=== PATIENT | female | born 1995 | race Caucasian/White ===

== ENCOUNTER 2020-05-19 13:47 | Outpatient (REF) | payer MEDICAID, SELFPAY | END 2020-05-19 13:48 | disposition home or self-care (01) | LOC: HO.LAB 13:47 | PROVIDERS: Visit Provider Internal Medicine | DX: Z20.822 Contact with and (suspected) exposure to COVID-19 (principal) | CPT/HCPCS: 36415; C9803; U0003; U0005 ==

== ENCOUNTER 2020-07-29 09:23 | Outpatient (REF) | payer MEDICAID, SELFPAY ==
[2020-07-29 09:55] LABS: COVID-19 Test Negative (Negative)
== END 2020-07-29 09:24 | disposition home or self-care (01) ==
LOC: HO.LAB 09:23
PROVIDERS: Visit Provider Internal Medicine
DX: Z20.822 Contact with and (suspected) exposure to COVID-19 (principal)
CPT/HCPCS: 36415; 87635; C9803

== ENCOUNTER 2020-11-16 11:40 | Outpatient (REF) | payer MEDICAID, SELFPAY | END 2020-11-16 11:41 | disposition home or self-care (01) | LOC: HO.LAB 11:40 | PROVIDERS: PCP Internal Medicine; Visit Provider Internal Medicine | DX: Z20.822 Contact with and (suspected) exposure to COVID-19 (principal) | CPT/HCPCS: C9803; U0003; U0005 ==

== ENCOUNTER 2022-04-07 12:37 | Emergency (ER) | payer MEDICAID, SELFPAY ==
[2022-04-07 12:48] VITALS: BP 157/97; PULSE 80; RESP 18; TEMP 36.1; O2SAT 98; BMI 34.2
--- NOTE | 2022-04-07 12:49 | ED_ITS ---
HPI - General Adult General Chief complaint: General Medical Stated complaint: facial swelling Time Seen by Provider: 04/07/22 12:49 Source: patient Mode of arrival: ambulatory Limitations: no limitations History of Present Illness HPI narrative: Patient is a 27 year old assigned female at with no reported medical history presenting to the emergency department today with right sided facial swelling. Patient states that she was on break when the right side of her face began to swell. Patient states that it has already gone down and gotten better but her boss told her she had to be seen here. Patient denies any dizziness, lightheadedness, abdominal pain, nausea, vomiting, fever, chills, blurry vision, double vision, loss of vision, chest pain, difficulty breathing, shortness of breath, back pain, night sweats, pain with urination, increased urinary frequency, increased urinary urgency, blood in her urine or stool, syncope or a near syncopal episode, recent trauma or falls, bowel incontinence, bladder incontinence, bowel retention, bladder retention, or any other complaints at this time. Patient denies any exposure to anything new. Patient denies any history of allergies to anything. Onset (ago): minute(s) Location: face and right Radiation: non-radiation Severity: mild Severity scale (1-10): 2 Relieving factors: none Exacerbating factors: none Associated symptoms: denies other symptoms Treatments prior to arrival: none Related Data Previous Rx's Medication Instructions Recorded prednisone 20 mg tablet 20 mg PO DAILY 7 days #7 tabs 04/07/22 Allergies Allergy/AdvReac Type Severity Reaction Status Date / Time No Known Allergies Allergy Unverified 11/27/19 17:20 [No Known Allergies*] Review of Systems Constitutional: Constitutional: Reports no additional constitutional complaints, Denies chills, Denies fever(s) and Denies night sweats Comments: right sided facial swelling Eyes: Eyes: Reports no additional eye complaints, Denies blurry vision, Denies change in vision, Denies diplopia, Denies eye discharge, Denies loss of vision and Denies eye pain ENT: Denies dizziness Cardiovascular: Cardiovascular: Reports no additional cardiovascular complaints, Denies chest pain, Denies lightheadedness, Denies Loss of Consciousness and Denies dyspnea Respiratory: Respiratory: Reports no additional respiratory complaints and Denies dyspnea Gastrointestinal: Gastrointestinal: Reports no additional gastrointestinal complaints, Denies abdominal pain, Denies melena, Denies hematochezia, Denies change in bowel habits and Denies change in stool character Genitourinary: Genitourinary: Denies hematuria, Denies urinary frequency, Denies dysuria, Denies urinary incontinence, Denies urinary hesitancy and Denies urinary urgency Musculoskeletal: Musculoskeletal: Reports no additional musculoskeletal complaints, Denies numbness and Denies tingling Neurologic: Denies dizziness, Denies loss of vision, Denies numbness and Denies tingling Psychiatric: Psychiatric: Reports no additional psychiatric complaints Endocrine: Endocrine: Reports no additional endocrine complaints Hematologic/Lymphatic: Hematologic/Lymphatic: Reports no additional hematologic/lymphatic complaints Allergic/Immunologic: Allergic/Immunologic: Reports no additional allergic/immunologic complaints [facility] Past Medical History Attestation statement: The following information was validated with the patient. Source: old records reviewed and nursing notes reviewed Social History Social History Advance Directives: No Advance Directives Information Provided: No Physical Exam ED Vital Signs: Vital Signs - 24 hr 04/07/22 12:48 Temperature 97.0 F Pulse Rate 80 Respiratory Rate 18 Blood Pressure 157/97 H Pulse Oximetry 98 Oxygen Delivery Method Room Air BMI result Body Mass Index 34.2 Const General: cooperative, no acute distress, alert and awake Nutritional Appearance: well nourished Orientation/consciousness: patient oriented x3 Limitations: no limitations HENMT Other: minimal right sided facial cheek swelling Head: Yes atraumatic Ears: hearing grossly normal bilaterally and external ears normal General nose exam: Normal external nose present, no nasal discharge noted and no epistaxis Face and sinus: Yes normal facial exam, No abrasion and No laceration Mouth: Normal oral and palatal mucosa present, no drooling and no muffled voice Eyes General: appearance normal, both eyes and all related structures Periorbital: periorbital findings normal Eyelids: Yes eyelids normal Conjunctivae: conjunctivae normal Pupils: Equal, round and reactive pupils present EOM: EOMs intact bilaterally Neck Neck: Yes normal visual inspection, Yes full ROM and Yes no lymphadenopathy Chest Chest palpation & inspection: normal inspection of the chest Resp Effort & Inspection: normal respiratory effort and able to speak in complete sentences Auscultation: clear to auscultation bilaterally Cardio Rate: regular rate Rhythm: regular rhythm GI Inspection: Yes normal to inspection Palpation (GI): Soft to palpation, not firm, nontender, no guarding and not r igid Neuro General: patient oriented x3 and moves all extremities Cranial nerves: Yes Equal, round and reactive pupils present Cognition (Neuro): normal cognition Motor exam (neuro): 5/5 motor strength present throughout Sensory Exam: Normal double simultaneous stimulation for sensation Coordination: [id number] test normal Extrem General: Yes normal to inspection, Yes full ROM and Yes capillary refill normal Psych Appearance: grossly normal Mental Status: mental status grossly normal Affect: normal affect Attitude: cooperative Thought process: Normal thought process present Thought content: Normal thought content present Insight: Good insight present (Psych) Medical Decision Making Medical Decision Making MDM Narrative: Patient is a 27 year old assigned female at with no reported medical history presenting to the emergency department today with right sided facial swelling. Patient's physical exam showed very minimal right sided facial swelling with no signs of dental abscess or facial cellulitis. I explained my physical exam findings to the patient. I answered all questions asked by the patient. Patient's clinical presentation is most consistent with an allergic reaction. I stressed the importance of the patient taking her medication as prescribed. I stressed the importance of the patient following up with her primary care provider. I stressed the importance of the patient returning to the emergency department immediately if her symptoms were to worsen or if she were t o develop any dizziness, shortness of breath, difficulty breathing, chest pain, blurry vision, loss of vision, nausea, vomiting, abdominal pain, fever, chills, back pain, or any other complaints. Patient verbalized agreement and understanding with this treatment plan and discharge. Differential Diagnosis Differential Diagnoses: The differential diagnosis associated with the presentation includes right sided faicial swelling, allergic reaction Discharge Plan Discharge Clinical Impression: Allergic reaction Patient Disposition: Home, Self-Care Instructions: General Allergic Reaction (ED) Additional Instructions: Follow up with your primary care provider. Return to the emergency department immediately if your symptoms worsen or if you develop any dizziness, shortness of breath, difficulty breathing, chest pain, blurry vision, loss of vision, nausea, vomiting, abdominal pain, fever, chills, back pain, or any other complaints. Prescriptions: New prednisone 20 mg tablet 20 mg PO DAILY 7 Days Qty: 7 0RF Referrals: [facility] Family [facility] [Provider Group] (Call to establish and follow up with a primary care provider. If you already have a primary care provider, please follow up with them. ) [facility] [Provider Group] (Call to establish and follow up with a primary care provider. If you already have a primary care provider, please follow up with them. ) [facility] [Provider [facility]] (Call to establish and follow up with a primary care provider. If you already have a primary care provider, please follow up with them. ) Interventions: ED Discharge Assessment Last Done: 04/07/22 12:54 Discharge Date/Time: 04/07/22 13:11 Print Language: Cymro
== END 2022-04-07 13:11 | disposition home or self-care (01) ==
PROVIDERS: Emergency Provider Student in an Organized Health Care Education/Training Program
DX: T78.40XA Allergy, unspecified, initial encounter (principal); R22.0 Localized swelling, mass and lump, head; X58.XXXA Exposure to other specified factors, initial encounter
CPT/HCPCS: 99282; 99283

== ENCOUNTER 2023-05-09 12:08 | Outpatient (REF) | payer MEDICAID, OTHER, SELFPAY ==
[2023-05-09 14:09] LABS: Alanine Aminotransferase 145 U/L (0-31); Aspartate Amino Transferase 79 U/L (5-31); Estimated Glomerular Filt Rate > 60
[2023-05-10 04:39] LABS: HIV AB/AG Nonreactive (Nonreactive); HIV Num 1 0.07 S/CO (0.00-0.99); ~HepC Num1 0.09 S/CO (0.00-0.79); ~Hepatitis C Antibody Nonreactive (Nonreactive)
[2023-05-10 04:55] LABS: Syphilis Screen Reactive (Nonreactive)
[2023-05-10 15:42] LABS: BV Int Neg Control Negative (Negative); BV Int Pos Control Positive (Positive)
[2023-05-11 21:28] LABS: C. trachomatis RNA TMA NOT DETECTED (NOT DETECTED); N. gonorrhoeae RNA TMA NOT DETECTED (NOT DETECTED)
[2023-05-17 15:12] LABS: RPR Quantitative Non-Reactive (Nonreactive); T.Pallidum Particle Agg Test Inconclusive (Nonreactive)
== END 2023-05-09 12:09 | disposition home or self-care (01) ==
LOC: HO.HHCL 12:08
PROVIDERS: Visit Provider Advanced Practice Midwife
DX: Z11.3 Encounter for screening for infections with a predominantly sexual mode of transmission (principal); Z79.899 Other long term (current) drug therapy
CPT/HCPCS: 36415; 82565; 84450; 84460; 86592; 86780; 86803; 87389; 87480; 87491; 87510; 87591; 87660

== ENCOUNTER 2024-02-25 15:05 | Outpatient (REF) | payer MEDICAID, OTHER, SELFPAY ==
[2024-02-25 17:32] LABS: Alanine Aminotransferase 174 U/L (0-31); Alkaline Phosphatase 111 U/L (39-117); Aspartate Amino Transferase 151 U/L (5-31); Bilirubin Direct 0.1 mg/dL (0.0-0.5); Bilirubin Total 0.3 mg/dL (0.0-1.0); TSH reflex Free T4 0.85 uIU/mL (0.32-4.0); Total Protein 7.9 g/dL (6.5-8.0)
[2024-02-25 17:50] LABS: Gamma Glutamyl Transpeptidase 99 U/L (7-33)
[2024-02-26 08:12] LABS: HBS Num1 289.99 mIU/mL (0-7.99); HBsAGNum1 0.39 S/CO (0.00-0.99); HIV AB/AG Nonreactive (Nonreactive); HIV Num 1 0.05 S/CO (0.00-0.99); Hepatitis A Antibody IgM 0.16 Index (0-0.79); Hepatitis B Core Antibody Nonreactive (Nonreactive); Hepatitis B Surface Antigen Negative (Negative); ~Hepatitis A Antibody IgM Nonreactive (Nonreactive); ~Hepatitis B Surface Antibody REACTIVE (Nonreactive); ~Hepatitis C Antibody Nonreactive (Nonreactive)
== END 2024-02-25 15:06 | disposition home or self-care (01) ==
LOC: HO.HHCL 15:05
PROVIDERS: Visit Provider Internal Medicine
DX: R74.01 Elevation of levels of liver transaminase levels (principal)
CPT/HCPCS: 36415; 80076; 82977; 84443; 86704; 86706; 86709; 86803; 87340; 87389

== ENCOUNTER 2024-03-20 08:43 | Outpatient (REF) | payer MEDICAID, SELFPAY ==
--- NOTE | ~2024-03-20 | US_ITS ---
EXAMINATION: US ABDOMEN LIMITED CLINICAL INFORMATION: Elevated liver function tests. COMPARISON: None available. TECHNIQUE: Real-time imaging of the right upper quadrant abdominal viscera. Limited visualization due to bowel gas. FINDINGS: PANCREAS: Visualized portions are unremarkable. LIVER: Increased hepatic parenchymal heterogeneity and echogenicity could be associated with hepatocellular disease/hepatic steatosis and substantially limits visualization. Correlation with liver function tests and clinical exam recommended to determine further management. . GALLBLADDER: No gallstones. No gallbladder wall thickening. COMMON BILE DUCT: Normal in caliber measuring 0.5 cm in diameter. RIGHT KIDNEY: No hydronephrosis. No renal calculi. Limited visualization. The kidney measures 10.8 cm in maximum dimension. FREE FLUID: None. US/US abdomen limited IMPRESSION: Increased hepatic parenchymal heterogeneity and echogenicity could be associated with hepatocellular disease/hepatic steatosis and substantially limits visualization. Correlation with liver function tests and clinical exam recommended to determine further management. Electronically signed by: Zandra Devlin MD 03/24/2024 02:02 PM LEON
== END 2024-03-20 08:44 | disposition home or self-care (01) ==
LOC: HO.US 08:43
PROVIDERS: Visit Provider Internal Medicine
DX: R74.01 Elevation of levels of liver transaminase levels (principal)
CPT/HCPCS: 76705

== ENCOUNTER 2024-12-11 11:58 | Outpatient (REF) | payer MEDICAID, SELFPAY ==
--- OUTSIDE RECORDS SUMMARY | 2024-12-10 15:20 | XMS_ITS | Encounter Summary ---
Author Organization [employer] Address [address] [facility] [facility] [address] [place] [address] Care Team Providers Care [employer] Management Professor Name Role Phone Kimberly Herr MD Primary Care Provider + Encounter Details Date Type Department Care Team (Late st Contact Info) Description 12/10/2024 3:20 PM EDT Office Visit [facility] [address], [place] [phone] Kimberly Herr MD [address] [place] [id number] Acute cystitis with hematuria (Primary Dx); Vaginal discomfort Social History Tobacco Use Types Packs/Day Years Used Date Smoking Tobacco: Never Smokeless Tobacco: Never Alcohol Use Standard Drinks/Week Comments Yes 3 (1 standard drink = 0.6 oz pur e alcohol) nips 3 to 4 a day Depression Answer Date Recorded Patient Health Questionnaire-9 Score 15 07/26/2022 Housing Stability Answer Date Recorded What is your housing situation today? I have beatriz solorzano 06/11/[address] you li ve. Do you have problems with any of the following? None of the above 06/11/2023 Food Insecurity Answer Date Recorded Within the past 12 months, y ou worried that your food would run out before you got money to buy more: Never True 06/11/2023 Within the past 12 months,th e food you bought just didn't last and you didn't have enough money to get more: Never True 03/2023 Transportation Answer Date Recorded In the past 12 months, has l ack of transportation kept you from medical appts, meetings, work or from getting things needed for daily living? No 06/11/2023 Utilities Answer Date Recorded In the past 12 months, has t he electric, gas, oil or water company threatened to shut off services in your home? No 06/11/2023 Depression Answer Date Recorded Patient Health Questionnaire-2 Score 3 07/26/2022 Comments No Sex and Gender Information Value Date Recorded Sex Assigned at Female 01/09/2022 10:30 AM EDT Legal Sex Female 10:30 AM EDT Gender Identity Female 01/09/2022 10:30 AM EDT Sexual Orientation Straight 01/09/2022 10 :30 AM EDT documented as of this encounter Last Filed Vital Signs Vital Sign Reading Time Taken Comments Blood Pressure 125/81 12/10/2024 3:50 PM EDT Pulse 100 12/10/2024 3:50 PM EDT Temperature 37.1 C (98.8 F) 12/10/2024 3:50 PM EDT Respiratory Rate 20 12/10/2024 3:50 PM EDT Oxygen Saturation - - Inhaled Oxygen Concentration - - Weight 90.3 kg (199 lb) 12/10/2024 3:50 PM EDT Height 154.9 cm (5' 1 ) 12/10/2024 3:50 PM EDT Body Mass Index 37.6 12/10/2024 3:50 PM EDT documented in this encounter Progress Notes * Kimberly Herr MD - 12/10/2024 3:20 PM EDT SUBJECTIVE: Abigail De La Cruz is a 29 y.o. year old female who presents for [facility]/abdominal pain. Denies recent illness, injury, or hospitalization. Acute Concerns: Complaining of suprapubic and vaginal discomfort x 4 days, mild dysuria, no significant vaginal discharge, fever, chills or nausea. LMP 2 weeks ago, she is not on control but has not been sexually active in 5 months. Social History Social History Narrative Not on file Problem List[1] Family History[2] Review of Systems Constitutional: Negative for chills, fatigue and fever. HENT: Negative for congestion, ear pain, nosebleeds, rhinorrhea, sinus pressure, sore throat and trouble swallowing. Eyes: Negative for pain and discharge. Respiratory: Negative for cough, chest tightness and shortness of breath. Cardiovascular: Negative for chest pain, palpitations and leg swelling. Gastrointestinal: Negative for blood in stool, constipation, diarrhea and nausea. Endocrine: Negative for polydipsia and polyuria. Genitourinary: Positive for dysuria, pelvic pain and urgency. Negative for frequency, genital soresand vaginal discharge. Musculoskeletal: Negative for back pain and neck pain. Skin: Negative for rash. Allergic/Immunologic: Negative for environmental allergies. Neurological: Negative for dizziness, seizures, weakness, light-headedness and headaches. Hematological: Negative for adenopathy. Psychiatric/Behavioral: Negative for agitation, behavioral problems, self-injury and suicidal ideas. OBJECTIVE: Vitals: 12/10/24 1550 BP: 125/81 Pulse: 100 Resp: 20 Temp: 98.8 ??F (37.1 ??C) Physical Exam HENT: Right Ear: Tympanic membrane and ear canal normal. Left Ear: Tympanic membrane and ear canal normal. Mouth/Throat: Mouth: Mucous membranes are moist. Pharynx: No oropharyngeal exudate or posterior oropharyngeal erythema. Eyes: Pupils: Pupils are equal, round, and reactive to light. Cardiovascular: Rate and Rhythm: Regular rhythm. Pulses: Normal pulses. Heart sounds: Normal heart sounds. No murmur heard. Pulmonary: Breath sounds: Normal breath sounds. Abdominal: General: Bowel sounds are normal. Palpations: Abdomen is soft. Tenderness: There is no abdominal tenderness. Musculoskeletal: General: Normal range of motion. Cervical back: Neck supple. Skin: General: Skin is warm. Neurological: General: No focal deficit present. Mental Status: She is alert and oriented to person, place, and time. Psychiatric: Mood and Affect: Mood normal. Behavior: Behavior normal. Problem List Items Addressed This Visit Acute cystitis with hematuria - Primary Patient had bacteriuria + UTI symptoms, I will Rx Bactrim x 3 days, if culture is positive, she will complete the 5 days aor adjust antibiotic as needed. Follow-up vaginal swab results Relevant Orders POCT Urinalysis Culture, Urine, Routine Other Visit Diagnoses Vaginal discomfort Relevant Orders Bacterial Vaginosis Chlamydia/N. Gonorrhoeae RNA, TMA, Urogenitial Follow Up: Medications Ordered Prior to Encounter[3] [1] Patient Active Problem List Diagnosis Vaginal discharge Seasonal allergic rhinitis Obesity Latent syphilis with positive serology Influenza due to influenza A virus Depression in member of household Generalized anxiety disorder High liver transaminase level Acute cystitis with hematuria [2] No family history on file. [3] Current Outpatient Medications on File Prior to Visit Medication Sig Dispense Refill Drospirenone (Slynd) 4 MG tablet Take 1 tablet by mouth in the morning. 28 tablet 11 topiramate (Topamax) 25 MG tablet 1 tab po qam/ 2 tabs po qhs 90 tablet 1 traZODone (Desyrel) 50 MG tablet Take 1 tablet (50 mg) by mouth at bedtime. 30 tablet 0 [DISCONTINUED] metroNIDAZOLE (Metrogel) 0.75 % vaginal gel Insert one applicator into vagina at bedtime x 5 nights. 70 g 0 No current facility-administered medications on file prior to visit. documented in this encounter Miscellaneous Notes * Assessment & Plan Note - Kimberly Herr MD - 12/10/2024 4:41 PM EDT Associated Problem(s): Acute cystitis with hematuria Patient had bacteriuria + UTI symptoms, I will Rx Bactrim x 3 days, if culture is positive, she will complete the 5 days aor adjust antibiotic as needed. Follow-up vaginal swab results documented in this encounter Plan of Treatment Scheduled Orders Name Type Priority Associated Diagnoses Order Schedule POCT Urinalysis Point of Care Testing Routine Acute cystitis with hematuria Ordered: 12/10/2024 Culture, Urine, Routine Microbiology Routine Acute cystitis with hematuria Expected: 12/10/2024 (Approximate), Expires: 12/10/2025 Bacterial Vaginosis Microbiology Routine Vaginal discomfort Expected: 12/10/2024 (Approximate), Expires: 12/10/2025 Chlamydia/N. Gonorrhoeae RNA, TMA, Urogenitial Microbiology Routine Vaginal discomfort Ordered: 12/10/2024 documented as of this encounter Visit Diagnoses Diagnosis Acute cystitis with hematuria- Primary Vaginal discomfort documented in this encounter Additional Health Concerns Assessment Noted Time PHQ-9 Depression Total Score: 15 07/26/ 023 10:27 AM EDT documented as of this encounter Care Teams [employer] Professor Relationship Specialty Start Date End Date Kimberly Herr MD [address] [place] [phone] PCP - General Family Medicine 08/29/16 documented as of this encounter
--- OUTSIDE RECORDS SUMMARY | 2024-12-11 13:43 | XMS_ITS | Encounter Summary ---
Author Organization [employer] Address [address] [facility] [address] [place] [address] Care Team Providers Care Filling Separator Name Role Phone Kimberly Herr MD Primary Care Provider + Encounter Details Date Type Department Care Team (Latest Contact Info) Description 12/10/2024 Travel Social History Tobacco Use Types Packs/Day Years [...] AM EDT documented as of this encounter Plan of Treatment Not on file documented as of this encounter Visit Diagnoses Not on filedocumented in this encounter Additional Health Concerns Assessment Noted Time PHQ-9 Depression Total Score: 15 07/26/ 023 10:27 AM EDT documented as of this encounter Care Teams Filling Separator Relationship Specialty Start Date End Date Kimberly Herr MD [address] [place] [id number] PCP - General Family Medicine 08/29/16 documented as of this encounter
--- OUTSIDE RECORDS SUMMARY | 2024-12-11 13:43 | XMS_ITS | Clinical Summary ---
Author Organization [employer] Address [address] [facility] [address] [place] [address] Care Team Providers Care Supervisor [employer] Name Role Phone Kimberly Herr MD Primary Care Provider + Allergies No known active allergies Medications topiramate (Topamax) 25 MG tabletIndicati ons:Generalize d anxiety disorder 1 tab po qam/ 2 tabs po qhs 90 tablet 1 3 Active traZODone (Desyrel) 50 MG tabletIndicati ons:Generalize d anxiety disorder Take 1 tablet (50 mg) by mouth at bedtime. 30 tablet 3 Active Drospirenone (Slynd) 4 MG tablet Take 1 tablet by mouth in the morning. 28 tablet 11 4 Active sulfamethoxazo le-trimethopri m (Bactrim DS) 800-160 MG tablet Take 1 tablet by mouth 2 times daily for 5 days. 10 tablet 5 12/16/19 25 Active metroNIDAZOLE (Metrogel) 0.75 % vaginal gel Insert one applicator into vagina at bedtime x 5 nights. 70 g 5 12/11/19 25 Discontinu ed(Therapy completed) Active Problems Problem Noted Date Diagnosed Date Acute cystitis with hematuria 12/10/2024 Assessment & Plan (12/10/2024 4:41 PM EDT): Patient had bacteriuria + UTI symptoms, I will Rx Bactrim x 3 days, if culture is positive, she will complete the 5 days aor adjust antibiotic as needed. Follow-up vaginal swab results High liver transaminase level 02/25/2024 Assessment & Plan (04/15/2024 9:19 AM EST): Most likely related to fatty liver secondary to ? Alcohol intake ? Overweight. Will refer to GI for additional work up. FIB 4 score is xxxx. She is Hep B immune. Reminded her to avoid alcohol and recreational substances, declined referral to AUD program. Will FU in 4 months. Assessment & Plan (02/27/2024 9:16 AM EST): Unclear if related to alcohol use, increase weight? Order labs and liver US Advised to avoid ETOH, recreational substances Advised re weight reduction, will fu at next visit FU in 4-6 Depression in member of household 07/26/2022 Assessment & Plan (07/26/2022 10:43 AM EDT): Daughter seems to have some mental health problems, I advised her to continue reaching out to the daughter's counselor and mental health team from school Will get in touch with team Generalized anxiety disorder 07/26/2022 Assessment & Plan (04/15/2024 9:21 AM EST): Pt reports having issues recently, claims to feel safe and declined referral to team. She feels safe and will reach out to us when needed. She is not taking any medications at this time. Reminded her to avoid alcohol and reactional substances. FU with me in 4 months. Assessment & Plan (07/26/2022 10:44 AM EDT): Pt has previous history of depression in the past, r/o bipolar disorder start topamax 25mg qAm /50mg qhs as a mood stabilizer and for anxiety. use trazadone 50mg qhs for the first month and fu with me in 1 month pt is able to reach out for safety, she has crisis number Pt feels safe at home. Will contact team and refer her to psychopharmacology clinic, unclear of who is her counselor at this time Latent syphilis with positive serology 9 Overview (02/27/2024): Already treated, according to patient. Assessment & Plan (02/27/2024 9:16 AM EST): According to patient, it was already treated in the past, didn't want to elaborate on that. Influenza due to influenza A virus 03/18/2018 Vaginal discharge 04/17/2017 Seasonal allergic rhinitis 01/23/2017 Obesity 01/23/2017 Assessment & Plan (02/27/2024 9:17 AM EST): Discussed re weight reduction options including exercise, life style modifications, diet Will consider meds in future visits. Recommended to decrease soda and sugary beverage consumption, increase protein intake with meals (at least 1 portion of protein with each meal) to assist with satiety, increase dietary fiber Recommended at least 150 min/week of moderate intensity exercise. Encounters Date Type Department Care Team Description 12/10/2024 3:20 PM EDT Office Visit [facility] [address] [phone] Kimberly Herr MD Acute cystitis with hematuria (Primary Dx); Vaginal discomfort 12/10/2024 Travel from Last 3 Months Immunizations Immunization Administration Dates Next Due Hep B, adult 12/21/2021,07/25/2021,05/23/2019 MMR 07/25/2021 Varicella 07/25/2021 Social History Tobacco Use Types Packs/Day Years Used Date Smoking Tobacco: Never Smokeless Tobacco: Never Tobacco Cessation:Counseling Given: Not Answered Alcohol Use Standard Drinks/Week Comments Yes 3 [...] Orientation Straight 01/09/2022 10 :30 AM EDT Last Filed Vital Signs Vital Sign Reading Time Taken Comments Blood Pressure 125/81 12/10/2024 3:50 PM EDT Pulse 100 12/10/2024 3:50 PM EDT Temperature 37.1 C (98.8 F) 12/10/2024 3:50 PM EDT Respiratory Rate 20 12/10/2024 3:50 PM EDT Oxygen Saturation 100% 02/25/2024 2:38 PM EST Inhaled Oxygen Concentration - - Weight 90.3 kg (199 lb) 12/10/2024 3:50 PM EDT Height 154.9 cm (5' 1 ) 12/10/2024 3:50 PM EDT Body Mass Index 37.6 12/10/2024 3:50 PM EDT Plan of Treatment Health Maintenance Due Date Last Done Comments Disability Screening 1993 Alcohol/Substance Use Screening 2005 Family Planning (PISQ) 2008 HPV Vaccines (1 - 3-dose series) 2008 DTaP/Tdap/Td Vaccines (1 - Tdap) 2012 Depression Monitoring 01/26/2023 07/26/2022, 023 SDOH Screening 06/10/2024 06/11/2023 COVID-19 Vaccine ( season) 2024 06/21/2021, 05/31/2021 Influenza Vaccine (#1) 2024 Cervical Cancer Screening 12/21/2024 HPV/Cotest 12/21/2024 Pap Smear 12/21/2024 12/21/2021 Tobacco Screening 02/24/2025 02/25/2024 Lipid Panel 05/26/2026 05/26/2021 Zoster Vaccines (1 of 2) 2043 RSV Patients and Patients Aged 60 years or older (1 - 1-dose 75+ series) 2068 Hepatitis B Vaccines Completed 12/21/2021, 07/25/2021, 05/23/2019 HIV Screening Completed 02/25/2024, 04/13, 12/21/2021, Additional history exists Hepatitis C Screening Completed 02/25/2024 , 05/09/2023, 12/21/2021, Additional history exists HIB Vaccines Aged Out No longer eligi ble based on patient's age to complete this topic Hepatitis A Vaccines Aged Out No long er eligible based on patient's age to complete this topic IPV Vaccines Aged Out No longer eligi ble based on patient's age to complete this topic Meningococcal B Vaccine Aged Out No l onger eligible based on patient's age to complete this topic Meningococcal Vaccine Aged Out No mark jd eligible based on patient's age to complete this topic Pneumococcal Vaccine: Pediatrics (0 to 5 Years) and At-Risk Patients (6 to 49) Years Aged Out No longer eligible based on patient's age to complete this topic RSV under 20 months Aged Out No longe r eligible based on patient's age to complete this topic Rotavirus Vaccines Aged Out No longer eligible based on patient's age to complete this topic Procedures Procedure Name Priority Date/Time Associated Diagnosis Comments HEPATITIS PANEL, GENERAL Routine 02/25/2024 3:07 PM EST High liver transaminase level HIV 1/2 ANTIGEN/ANTIBODY, FOURTH GENERATION W/RFL Routine 02/25/2024 3:07 PM EST High liver transaminase level THINPREP IMAGING SYSTEM PAP Routine 12/21/2021 9:32 AM EDT LIPID PANEL, STANDARD Routine 05/26/2021 11:06 AM EDT from Last 3 Months or Most Recently Relevant to Health Maintenance Results * Hepatitis Panel, General (02/25/2024 3:07 PM EST) Hepatitis A IgM Nonreactive Nonreactive [facility] Comment:IgM antibodies to ELKINS V not detected; does not exclude earlyacute or recovered HAV infection. ~Hepatitis B Surface Antibody REACTIVE Nonreactive [facility] Comment:REACTIVE: > 11.99 mI U/mL Hepatitis B Core Antibody Nonreactive Nonreactive [facility] Hepatitis C Antibody Nonreactive Nonreactive [facility] Comment:Antibodies to HCV no t detected; does not exclude early acuteHCV infection. Hepatitis B Surface Ag Negative Negative [facility] Blood 02/25/2024 3:07 PM EST 02/25/2024 4:23 PM EST us Kimberly Herr MD LAB BLOOD ORDERABLES Fin al Result Performing Organization Address [facility] Co de Phone Number [facility] [address] [place] [phone] * HIV-1/2 Antigen and Antibodies, Fourth Generation, with Reflexes (02/25/2024 3:07 PM EST) Pathologist [facility] HIV AB/AG Nonreactive Nonreactive [facility] Comment:HIV-1 p24 Ag and/or HIV-1/HIV-2 Ab not detected.A test result that is nonreactive does not exclude thepossibility of exposure to or infection with HIV-1 and/orHIV-2. Nonreactive results in this assay for individualswith prior exposure to HIV-1 and/or HIV-2 may be due toantigen and antibody levels that are below the limit ofdetection of this assay.The [facility] HIV Ag/Ab Combo assay result andsupplemental assay results should be interpreted inconjunction with the patient's clinical presentation,history and other laboratory results. If the results areinconsistent with clinical evidence, additional testing issuggested to confirm the result. Blood Venous blood specimen / Unknown 02/25/2024 3:07 PM EST 02/25/2024 4:23 PM EST us Kimberly Herr MD LAB BLOOD ORDERABLES Fin al Result Performing Organization Address City/[facility]/ZIP Co de Phone Number [facility] [address] [place] [address] [phone] * THINPREP TIS PAP (12/21/2021 9:32 AM EDT) Clinical Information: None given [facility] COMMENT SEE COMMENT [facility] Comment: EXPLANATORY NOTE: The Pap is a screening test for cervical cancer. It is not a diagnostic test and is subject to false negative and false positive results. It is most reliable when a satisfactory sample, regularly obtained, is submitted with relevant clinical findings and history, and when the Pap result is evaluated along with historic and current clinical information. COMMENT: This Pap test has been evaluated with computer assisted technology. [facility] Cellulose Insulation Helper : SEE COMMENT [facility] Comment: YEE CT(ASCP) CT screening location: [place] [address] Infection Shift in vaginal je suggestive of bacterial vaginosis. [facility] Interpretation/R esult: Negative for intraepithelial lesion or malignancy. [facility] LMP: MID 11/2021 [facility] Prev. BX: NONE GIVEN [facility] Prev. PAP: NONE GIVEN [facility] SOURCE: None given [facility] Statement Of Adequacy: SEE COMMENT [facility] Comment: Satisfactory for evaluation. Endocervical/transformation zone component present. 12/21/2021 9:32 AM EDT Rosita BECKER LAB PATHOLOGY ORDERABLES Final Result [facility] * (ABNORMAL) LIPID PANEL, STANDARD (05/26/2021 11:06 AM EDT) Chol/HDLC Ratio 4.8 <5.0 (calc) [facility] Cholesterol, Total 236(H) <200 mg/dL [facility] HDL Cholesterol 49(L) > OR = 50 mg/dL [facility] LDL Cholesterol 162(H) mg/dL (calc) [facility] Comment: Reference range: <100 Desirable range <100 mg/dL for primary prevention; <70 mg/dL for patients with CHD or diabetic patients with > or = 2 CHD risk factors. LDL-C is now calculated using the Alycia calculation, which is a validated novel method providing better accuracy than the Friedewald equation in the estimation of LDL-C. Jesus VICTORIA et al. LARS. 2013;310(19): 1505-5667 (http://education.[employer]Zentric/faq/MRL755) Non-HDL Cholesterol 187(H) <130 mg/dL (calc) [facility] Comment: For patients with diabetes plus 1 major ASCVD risk factor, treating to a non-HDL-C goal of <100 mg/dL (LDL-C of <70 mg/dL) is considered a therapeutic option. Triglycerides 128 <150 mg/dL [facility] 05/26/2021 11:0 6 AM EDT us Kimberly Herr MD LAB BLOOD ORDERABLES Fin al Result [facility] [address] from Last 3 Months or Most Recently Relevant to Health Maintenance Insurance [address] [place], [place] [id number] Care Teams Supervisor [employer] Relationship Specialty Start Date End Date Kimberly Herr MD [address] [place] [phone] PCP - General Family Medicine 08/29/16
[2024-12-11 13:46] LABS: Bacterial Vaginosis PCR NEGATIVE (Negative); Candida Group PCR DETECTED (Not Detect); Candida glab krusei PCR NOT DETECTED (Not Detect); Trichomonas vaginalis PCR NOT DETECTED (Not Detect)
[2024-12-11 14:15] LABS: CT PCR NOT DETECTED (Not Detect.); NG PCR NOT DETECTED (Not Detect.)
== END 2024-12-11 11:59 | disposition home or self-care (01) ==
LOC: HO.HHCLNP 11:58
PROVIDERS: Visit Provider Internal Medicine
DX: N94.9 Unspecified condition associated with female genital organs and menstrual cycle (principal); Z20.2 Contact with and (suspected) exposure to infections with a predominantly sexual mode of transmission
CPT/HCPCS: 81515; 87086; 87491; 87591

== ENCOUNTER 2024-12-11 12:46 | Outpatient (REF) | payer MEDICAID, SELFPAY | END 2024-12-11 12:47 | disposition home or self-care (01) | LOC: HO.HHCLNP 12:46 | PROVIDERS: Visit Provider Internal Medicine | DX: N30.01 Acute cystitis with hematuria (principal) | CPT/HCPCS: 87086 ==